=== PATIENT | female | born 1940 | race Caucasian/White ===

== ENCOUNTER 2020-05-24 11:46 | Outpatient (CLI) | payer OTHER, SELFPAY ==
--- NOTE | ~2020-05-24 | US_ITS ---
EXAMINATION: US venous doppler [facility] DATE: 05/24/2020 12:23 INDICATION: Left lower limb swelling. TECHNIQUE: Grayscale ultrasound images without and with compression and Doppler ultrasound images of the left lower extremity veins were obtained. COMPARISON: None. FINDINGS: The visualized portions of left common femoral vein, profunda (deep) femoral vein, femoral vein, popl iteal vein, peroneal veins, posterior tibial veins, and greater saphenous vein outflow are patent. IMPRESSION: 1. No deep venous thrombosis. Reviewed, dictated and finalized at location A.
== END 2020-05-24 11:47 | disposition home or self-care (01) ==
LOC: ANHIMG 11:51
PROVIDERS: PCP Physician Assistant; Visit Provider Physician Assistant
DX: M79.89 Other specified soft tissue disorders (principal)
CPT/HCPCS: 93971

== ENCOUNTER 2020-06-24 10:16 | Outpatient (CLI) | payer OTHER, SELFPAY ==
--- NOTE | 2020-06-24 | ECHO_ITS ---
Patient Info Name: Deanna Brewer Age: 79 years : 1940 Gender: Female Ht: 62 in Wt: 170 lbs BSA: 1.87 m2 HR: 67 bpm BP: 171 / 102 mmHg Heart Rhythm: Sinus Rhythm Technical Quality: Good Exam Date: 06/24/2020 10:48 AM Exam Location: [facility] Patient Status: Outpatient Admit Date: 06/24/2020 Staff Ordering Physician: RaymundoVandana Bag Loader Machine Operator: Lila Herrera RDCS Attending Provider: aRymundoVandana Exam Type: CA echo doppler color flow Study Info Indications - htn Complete two-dimensional, color flow and Doppler transthoracic echocardiogram is performed. Summary 1. Left ventricular systolic function is normal, estimated at 65-70%. 2. There is no increased left ventricular wall thickness. 3. The left ventricular diastolic function is grade I diastolic dysfunction. 4. There is no aortic valve stenosis. 5. There is trace mitral valve regurgitation. 6. The mitral valve annulus is moderately calcified. 7. No pulmonary hypertension, estimated pulmonary arterial systolic pressure is 34 mmHg. 8. There is mild tricuspid valve regurgitation. Left Ventricle Left ventricular chamber dimension is normal. Left ventricular systolic function is normal, estimated at 65-70%. There is no increased left ventricular wall thickness. The left ventricular diastolic function is grade I diastolic dysfunction. Right Ventricle Right ventricular chamber dimension is normal. Right ventricular systolic function is normal. Left Atria Left atrial chamber dimension is mildly enlarged. Right Atria Right atrial chamber dimension is mildly enlarged. Aortic Valve The aortic valve is not well visualized. There is mild aortic valve sclerosis. There is no aortic valve stenosis. There is no aortic valve regurgitation. Pulmonic Valve The pulmonic valve is not well visualized. Mitral Valve The mitral valve has thickened leaflets. There is trace mitral valve regurgitation. The mitral valve annulus is moderately calcified. Tricuspid Valve The tricuspid valve leaflets are normal. There is mild tricuspid valve regurgitation. No pulmonary hypertension, estimated pulmonary arterial systolic pressure is 34 mmHg. Pericardium/Pleural The pericardium appears normal. There is no pericardial effusion. Inferior Vena Cava Normal inferior vena cava with >50% collapse upon inspiration consistent with normal right atrial pressure, 5 mmHg. Aorta The aortic root size at the sinus of Valsalva is normal. Left Ventricular Outflow Tract Name Value Normal LVOT 2D LVOT Diameter 2.0 cm LVOT Doppler LVOT Peak Gradient 4 mmHg LVOT Mean Gradient 2 mmHg LVOT VTI 25 cm LVOT VTI/AV VTI Ratio 0.7 LVOT Stroke Volume 83 ml LVOT CO 14.3 l/min LVOT CI 7.6 l/min/m2 Pulmonic Valve Name
== END 2020-06-24 10:17 | disposition home or self-care (01) ==
PROVIDERS: PCP Physician Assistant; Visit Provider Physician Assistant
DX: I10 Essential (primary) hypertension (principal); I36.1 Nonrheumatic tricuspid (valve) insufficiency
CPT/HCPCS: 93306

== ENCOUNTER 2022-01-17 14:48 | Outpatient (CLI) | payer OTHER, SELFPAY ==
--- NOTE | ~2022-01-17 | CT_ITS ---
EXAMINATION: CT brain wo con DATE: 01/17/2022 15:10 INDICATION: Daily headache. TECHNIQUE: Computed tomography (CT) of the head was performed without intravenous contrast. The mA wa s adjusted according to patient size. Iterative reconstruction technique was employed. The dose-lengt h product was 605.33 mGy-cm. COMPARISON: Head CT 09/30/2011 FINDINGS: There is an old infarct at the junction of right thalamus and posterior limb right internal capsule. There are scattered areas of low attenuation in the cerebral white matter. There is no intr acranial hemorrhage, acute infarction, or abnormal intracranial mass lesion. The ventricles are jessi l in size. There are likely changes of ocular lens replacement surgeries. The paranasal sinuses are c lear. The mastoid air cells are normal. IMPRESSION: 1. 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 2. Worsened moderate nonspecific cerebral white matter disease, which likely represents chronic small vessel ischemic disease. Reviewed, dictated and finalized at location A. IMPRESSION: 1. 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 2. Worsened moderate nonspecific cerebral white matter disease, which likely re presents chronic small vessel ischemic disease.
== END 2022-01-17 14:49 | disposition home or self-care (01) ==
LOC: ANHIMG 14:50
PROVIDERS: PCP Physician Assistant; Visit Provider Physician Assistant
DX: G44.52 New daily persistent headache (NDPH) (principal); Z86.73 Personal history of transient ischemic attack (TIA), and cerebral infarction without residual deficits; R90.82 White matter disease, unspecified
CPT/HCPCS: 70450

== ENCOUNTER 2022-03-28 11:21 | Outpatient (CLI) | payer OTHER, SELFPAY ==
--- NOTE | ~2022-03-28 | XR_ITS ---
EXAM: XR facial bones min 3V DATE: 03/28/2022 11:56 HISTORY: FALL, INITIAL ENCOUNTER , FACIAL SWELLING AT BRIDGE OF NOSE . COMPARISON: None available. FINDINGS: Normal mineralization. No fracture or dislocation. No lytic or blastic lesion. Aerated spa joy are clear. Orbits are symmetric. No erosion or periosteal change. Soft tissues within normal limi ts. IMPRESSION: No acute osseous finding in the facial bones. Reviewed, dictated and finalized at location K.
== END 2022-03-28 11:22 | disposition home or self-care (01) ==
LOC: ANHIMG 11:25
PROVIDERS: PCP Physician Assistant; Visit Provider Physician Assistant
DX: M79.89 Other specified soft tissue disorders (principal)
CPT/HCPCS: 70150

== ENCOUNTER → 2022-04-11 11:06 | Outpatient (CLI) | payer OTHER, SELFPAY ==
--- NOTE | ~2022-04-11 | DEXA_ITS ---
Bone Density Report Name: JR LINN Age: 81 Sex: Female Ethnicity: White Date of : 1940 Indication: osteopenia; monitoring treatment; height loss; hysterectomy; postmenopausal Referring Provider: MOENAPOORVA Study: Bone densitometry was performed. Exam Date: April 11, 2022 Accession number: [id number] Bone Density: Region BMD T-score Z-score Classification AP Spine (L1-L4) 0.852 -1.8 1.0 Osteopenia Femoral Neck (Left) 0.656 -1.7 0.7 Osteopenia Total Hip (Left) 0.806 -1.1 1.1 Osteopenia Femoral Neck (Right) 0.639 -1.9 0.6 Osteopenia Total Hip (Right) 0.817 -1.0 1.2 Normal Total Hip Mean 0.812 -1.1 1.2 Osteopenia World Health Organization criteria for BMD impression classify patients as: Normal (T-score at or above -1.0), Osteopenia (T-score between -1.0 and -2.5), or Osteoporosis (T-score at or below -2.5). 10-year Fracture Risk: FRAX not reported because: Treated for osteoporosis Previous Exams: Region Exam Age BMD T-score BMD Change BMD Change Date g/cm2 vs Baseline vs Previous AP Spine(L1-L4) 04/11/2022 81 0.852 -1.8 -0.007 0.054* 08/07/2019 78 0.798 -2.3 -0.061* -0.061* 02/22/2011 70 0.859 -1.7 Total Hip(Left) 04/11/2022 81 0.806 -1.1 -0.029* 0.045* 08/07/2019 78 0.761 -1.5 -0.074* -0.074* 02/22/2011 70 0.834 -0.9 Total Hip(Right) 04/11/2022 81 0.817 -1.0 -0.030* 0.047* 08/07/2019 78 0.770 -1.4 -0.077* -0.077* 02/22/2011 70 0.847 -0.8 *Denotes significance at 95% confidence level, LSC for AP Spine = 0.022 g/cm2, LSC for Total Hip = 0.027 g/cm2 Clinical Information Provided by Patient: Is being treated for osteoporosis Has used the following medications: Actonel (i.e. risedronate), Vitamin D, Calcium Has the following medical conditions: Hysterectomy Patient maximum height was 63 Menopause Age: 30 No regular weight bearing exercise Does not regularly consume dairy products Drinks caffeinated beverages Onset of menses at age 12 Number of children 2 Impression: The patient has low bone mass, based on the Right Femoral Neck T-score. No significant bone loss was observed. Discussion: PATIENT UNDER TREATMENT WITH NO SIGNIFICANT BMD LOSS SINCE LAST EXAM. In an untreated patient, BMD typically declines with age. A lack of decline or gain is usually a sign that treatment is efficacious and fract
== END ==
PROVIDERS: PCP Physician Assistant; Visit Provider Physician Assistant
DX: Z78.0 Asymptomatic menopausal state (principal); M85.88 Other specified disorders of bone density and structure, other site; M85.852 Other specified disorders of bone density and structure, left thigh; M85.851 Other specified disorders of bone density and structure, right thigh
CPT/HCPCS: 77080

== ENCOUNTER 2023-05-22 07:18 | Emergency (ER) | payer OTHER, SELFPAY ==
--- NOTE | ~2023-05-22 | XR_ITS ---
Right Knee Technique: AP, lateral, and oblique views were obtained. Clinical History: Pain Findings: No fracture or dislocation is seen. Osseous alignment is anatomic. Minimal patellar spurrin g noted. Soft tissues are unremarkable. No joint effusion is seen. Impression: Minimal patellar spurring. Reviewed, dictated and finalized at location . Impression: Minimal patellar spurring.
--- NOTE | ~2023-05-22 | XR_ITS ---
Portable chest x-ray Comparison: 04/23/2015 Clinical History: Pain, status post fall Findings: Lungs are clear, without focal consolidation or pleural effusion. Cardiomediastinal silho uette is stable. Orthopedic fixation hardware the proximal right humerus. Impression: Clear lungs. No acute abnormality seen. Reviewed, dictated and finalized at [facility]. Impression: Clear lungs. No acute abnormality seen.
[2023-05-22 07:19] VITALS: BP 159/76; PULSE 72; RESP 16; TEMP 36.4; O2SAT 99
[2023-05-22] MEDS: LOSARTAN POTASSIUM 100 MG TABLET PO (08:13)
[2023-05-22] MEDS: amLODIPine BESYLATE 5 MG TABLET 10 MG PO (08:14)
[2023-05-22] MEDS: hydroCHLOROthiazide 25 MG TABLET PO (08:14)
--- NOTE | 2023-05-22 08:19 | ED.FALL ---
HPI - Fall General Chief Complaint: Fall Stated Complaint: rib pain post fall Time Seen by Provider: 05/22/23 07:32 History of Present Illness HPI Narrative: Patient with history of hypertension presents after she had a trip and fall yesterday, she states that for the last few weeks she has been having more trouble picking up her feet and she tries to walk too quickly and she thinks that is why she falls. She was able to throw her hands out and land on her front side, did not hit her head, has no pain anywhere other than mildly to her chest and right knee where she landed. Has been feeling fine other than that and just wanted to get checked out. Related Data Home Medications Medication Instructions Recorded Confirmed B-complex with vitamin C 1 cap PO DAILY 11/25/19 12/06/22 amlodipine 10 mg tablet 10 mg PO DAILY 11/25/19 12/06/22 cholecalciferol (vitamin D3) 1,250 1,250 mcg PO DAILY 11/25/19 12/06/22 mcg (50,000 unit) capsule levothyroxine 50 mcg tablet 50 mcg PO DAILY 11/25/19 12/06/22 losartan 100 1 tablet PO DAILY 11/25/19 12/06/22 mg-hydrochlorothiazide 25 mg tablet metoprolol succinate 50 mg 50 mg PO DAILY 11/25/19 12/06/22 tablet,extended release 24 hr omega-3 fatty acids 1,000 mg 1,000 mg PO DAILY 11/25/19 12/06/22 capsule (Fish Oil Concentrate) omeprazole 40 mg capsule,delayed 40 mg PO DAILY 11/25/19 12/06/22 release spironolactone 25 mg tablet 25 mg PO DAILY 11/25/19 12/06/22 cranberry 400 mg capsule 500 mg PO DAILY 12/26/21 12/06/22 Allergies Allergy/AdvReac Type Severity Reaction Status Date / Time fexofenadine AdvReac Unknown Unknown Verified 05/22/23 07:58 nystatin AdvReac Unknown Unknown Verified 05/22/23 07:58 sulfamethizole AdvReac Unknown Unknown Verified 05/22/23 07:58 sulfamethoxazole AdvReac Unknown Unknown Verified 05/22/23 07:58 trimethoprim AdvReac Unknown Unknown Verified 05/22/23 07:58 Review of Systems Review of Systems: CONST: No fever. HEENT: No sore throat C/V: Chest pain RESP: No cough GI: No abdominal pain : No dysuria. M/S: Right knee pain SKIN: Abrasion to L elbow. NEURO: [No headache or focal numbness or weakness] PSYCH: [No depression] [facility] Past Medical History Medical History Cough GERD (gastroesophageal reflux disease) Family History Family History Father Cerebrovascular accident Sibling Family history of renal failure Mother Family history of heart disease in male family member before age 55 Social History Social History Smoking status: Never smoker Alcohol intake: never Exam Narrative: EXAMINATION OF ORGAN SYSTEMS/BODY AREAS: Constitutional: Vital signs per nursing GENERAL:[No acute distress, non-toxic appearing.] HEAD: Normal with no signs of head trauma. EYES: EOMI, conjunctiva normal ENT: Hearing grossly intact LUNGS: Nonlabored breathing. HEART: [Regular rate and rhythm] very mild tenderness under bilateral breasts without crepitus or bruising ABD: [Soft], [nontender to palpation] EXT: Normal range of motion, no pelvic tenderness or instability, there is a small abrasion to the left elbow, slight bruising to the right knee SKIN: Abrasion left elbow bruise right knee NEURO: [Alert and oriented x 3. No gross focal sensory or strength deficits.] PSYCH: Normal affect Course Vital Signs Vital signs: Vital Signs Temperature 97.5 F L 05/22/23 07:19 Pulse Rate 72 05/22/23 07:19 Respiratory Rate 16 05/22/23 07:19 Blood Pressure 159/76 H 05/22/23 07:19 Pulse Oximetry 99 05/22/23 07:19 Temperature 97.5 F L 05/22/23 07:19 Pulse Rate 60 05/22/23 08:45 Respiratory Rate 18 05/22/23 08:45 Blood Pressure 165/78 H 05/22/23 08:45 Pulse Oximetry 100 05/22/23 08:45 MDM - Fall MDM Narrative Medical decision making narrative:
[2023-05-22 08:45] VITALS: BP 165/78; PULSE 60; RESP 18; O2SAT 100
[2023-05-22 09:40] VITALS: BP 157/86; PULSE 64; RESP 18; O2SAT 97
== END 2023-05-22 09:41 ==
PROVIDERS: Emergency Provider Emergency Medicine; PCP Physician Assistant
DX: S80.01XA Contusion of right knee, initial encounter (principal); S50.312A Abrasion of left elbow, initial encounter; K21.9 Gastro-esophageal reflux disease without esophagitis; W01.0XXA Fall on same level from slipping, tripping and stumbling without subsequent striking against object, initial encounter
CPT/HCPCS: 71045; 73562; 99284; A9270

== ENCOUNTER 2024-03-04 09:04 | Outpatient (CLI) | payer OTHER, SELFPAY ==
[2024-03-04 09:36] LABS: Alanine Aminotransferase 13 U/L (6-35); Albumin Level 4.9 g/dL (3.5-5.1); Alkaline Phosphatase 51 U/L (38-126); Anion Gap 8 mmol/L (4-12); Aspartate Amino Transferase 25 U/L (14-36); Bilirubin,Total 0.8 mg/dL (0.2-1.3); Blood Urea Nitrogen 21 mg/dL (7-17); Calcium 11.2 mg/dL (8.4-10.2); Carbon Dioxide 28 mmol/L (22-30); Chloride 94 mmol/L (98-107); Estimated Glomerular Filt Rate 60; Glucose 105 mg/dL (65-110); Potassium 4.2 mmol/L (3.4-5.0); Sodium 130 mmol/L (137-145)
== END 2024-03-04 09:05 | disposition home or self-care (01) ==
LOC: ANHLAB 09:06
PROVIDERS: PCP Physician Assistant; Visit Provider Physician Assistant
DX: E87.1 Hypo-osmolality and hyponatremia (principal)
CPT/HCPCS: 36415; 80053

== ENCOUNTER 2024-09-04 08:42 | Outpatient (CLI) | payer OTHER, SELFPAY ==
--- NOTE | ~2024-09-04 | MMUS_ITS ---
EXAMINATION: MM diagnostic sagar BI w liliana, US breast RT limited HISTORY: Mastodynia TECHNIQUE: 3-D tomosynthesis images of the breasts were performed and synthetic 2-D images were gener ated. CAD analysis was submitted and interpreted. High resolution limited right breast ultrasound was performed. COMPARISON: 05/27/2018 BREAST PARENCHYMAL COMPOSITION:Not Dense. The breasts are almost entirely fatty FINDINGS: MAMMOGRAPHIC FINDINGS: No suspicious mass lesion or distortion are identified. Bilateral benign calcifications are present. No suspicious microcalcifications. ULTRASOUND: No sonographic abnormality seen in the region scanned in the right breast at the 6:00-9:00 positions. IMPRESSION: No evidence for malignancy. BI-RADS Category 2: Benign finding(s). Reviewed, dictated and finalized at location . IMPRESSION: No evidence for malignancy. BI-RADS Category 2: Benign finding(s).
== END 2024-09-04 08:43 | disposition home or self-care (01) ==
LOC: MICIMG 08:43
PROVIDERS: PCP Physician Assistant; Visit Provider Physician Assistant
DX: N64.4 Mastodynia (principal)
CPT/HCPCS: 76642; 77062; 77066; G0279

== ENCOUNTER 2025-05-20 11:11 | Outpatient (CLI) | payer OTHER, SELFPAY ==
--- NOTE | ~2025-05-20 | DEXA_ITS ---
Bone Density Report Name: JR LINN Age: 84 Sex: Female Ethnicity: White Date of : 1940 Indication: osteopenia; height loss; hysterectomy; Referring Provider: MONE, APOORVA Study: Bone densitometry was performed. Exam Date: May 20, 2025 Accession number: [id number] Bone Density: Region BMD T-score Z-score Classification AP Spine(L1-L4) 0.862 -1.7 1.2 Osteopenia Femoral Neck (Left) 0.731 -1.1 1.5 Osteopenia Total Hip (Left) 0.885 -0.5 1.9 Normal Femoral Neck (Right) 0.669 -1.6 0.9 Osteopenia Total Hip (Right) 0.857 -0.7 1.6 Normal Total Hip Mean 0.871 -0.6 1.8 Normal World Health Organization criteria for BMD impression classify patients as: Normal (T-score at or above -1.0), Osteopenia (T-score between -1.0 and -2.5), or Osteoporosis (T-score at or below -2.5). 10-year Fracture Risk(1): Major Osteoporotic Fracture 12% Hip Fracture 3.4% Reported Risk Factors: [place] (), Neck BMD=0.669, BMI=35.0 (1) FRAX(R) Version 3.08. Fracture probability calculated for an untreated patient. Fracture probability may be lower if the patient has received treatment. Previous Exams: -- Region Exam Age BMD T-score BMD Change BMD Change Date g/cm2 vs Baseline vs Previous -- AP Spine (L1-L4) 05/20/2025 84 0.862 -1.7 0.3% 1.1% 04/11/2022 81 0.852 -1.8 -0.8% 6.8%* 08/07/2019 78 0.798 -2.3 -7.2%* -7.2%* 02/22/2011 70 0.859 -1.7 Total Hip(Left) 05/20/2025 84 0.885 -0.5 6.1%* 9.8%* 04/11/2022 81 0.806 -1.1 -3.4%* 5.9%* 08/07/2019 78 0.761 -1.5 -8.8%* -8.8%* 02/22/2011 70 0.834 -0.9 Total Hip(Right) 05/20/2025 84 0.857 -0.7 1.2% 4.9%* 04/11/2022 81 0.817 -1.0 -3.5%* 6.1%* 08/07/2019 78 0.770 -1.4 -9.1%* -9.1%* 02/22/2011 70 0.847 -0.8 -- *Denotes significance at 95% confidence level, LSC for AP Spine = 0.022 g/cm2, LSC for Total Hip = 0.027 g/cm2 Clinical Information Provided by Patient: Has used the following medications: Vitamin D, Calcium Has the following medical conditions: Hysterectomy Patient maximum height was 63.8 Menopause Age: 30 Drinks caffeinated beverages Onset of menses at age 12 Number of children 2 Impression: The patient has low bone mass, based on the Total Spine T-score. The patient has an estimated ten-year risk of hip fracture of 3.4% and an estimated ten-year risk of major fracture of 12%, based on the WHO FRAX algorithm. No significant bone loss was observed. Discussion: BONE DENSITY IS LOW AT ONE OR MORE SKELETAL SITES. THE PATIENT'S BMD AND CLINICAL RISK FACTORS CONTRIBUTE TO THIS PATIENT'S INCREASED RISK OF FRACTURE. This patient's lowest T-score is low at one or more skeletal sites. It meets the World Health Organization's (WHO) criteria for ?low bone mass? (T-score between -1.0 and -2.5). The patient's 10-year risk of hip fracture as calculated by FRAX exceeds the threshold where pharmacological therapy is recommended by the National Osteoporosis Foundation (NOF). However, all treatment decisions require clinical judgment and consideration of individual patient factors, including patient preferences, comorbidities, previous drug use, risk factors not captured in the FRAX model (e.g., frailty, falls, vitamin D deficiency, increased bone turnover, interval significant decline in bone density) and possible under or overestimation of fracture risk by FRAX. The patient should follow a healthful lifestyle (good nutrition with adequate calcium and vitamin D, and appropriate weight-bearing exercise). Follow-Up: Consider a repeat BMD and Vertebral Fracture Assessment (VFA) exam in 2 years or sooner if medically necessary, to reassess this patient's status. Reported by: MICHELE on 05/20/2025 11:33:00 AM. Reviewed, dictated and finalized at location A.
== END 2025-05-20 11:12 | disposition home or self-care (01) ==
LOC: MICIMG 11:11
PROVIDERS: PCP Physician Assistant; Visit Provider Physician Assistant
DX: M85.89 Other specified disorders of bone density and structure, multiple sites (principal); Z78.0 Asymptomatic menopausal state
CPT/HCPCS: 77080